=== PATIENT | female | born 1990 | race Caucasian/White ===

== ENCOUNTER 2021-06-20 12:48 | Inpatient (IN) | payer OTHER ==
[2021-06-20] MEDS ORDERED: Ondansetron 4 MG/2 ML SDV IVPUSH PRN (15:25)
[2021-06-20] MEDS ORDERED: Nalbuphine HCl 10 MG/ 1ML Amp IVPUSH PRN (15:25)
[2021-06-20] MEDS ORDERED: Sodium Chloride 0.9% 10 ML Syringe FLUSH PRN (15:25)
[2021-06-20] MEDS ORDERED: Misoprostol 25 MCG (1/4 of 100 MCG) Tab VAG ONE (15:29)
[2021-06-20] MEDS ORDERED: Oxytocin/Lactated Ringers 10 UNIT/1,000 ML BAG IV SCH ×2 (15:30)
[2021-06-20] MEDS ORDERED: Calcium Carbonate 500 MG Tab.Chew PO PRN (16:39)
[2021-06-20] MEDS ORDERED: Acetaminophen 325 MG Tab PO ONE (20:31)
[2021-06-20] MEDS: Lactated Ringers 1,000 ML IV SCH (20:51)
[2021-06-20] MEDS: Sodium Chloride 0.9% 10 ML Syringe FLUSH SCH (21:01)
[2021-06-21] MEDS ORDERED: Bupivacaine 0.25% 10 ML SDV ONE
[2021-06-21] MEDS: Lactated Ringers 1,000 ML IV SCH ×3 (00:50→08:56)
[2021-06-21] MEDS ORDERED: fentaNYL 100 MCG/2 ML SDV EPIDUR PRN (01:00)
[2021-06-21] MEDS ORDERED: ePHEDrine 50 MG/ML SDV IVPUSH PRN (01:00)
[2021-06-21] MEDS ORDERED: diphenhydrAMINE 50 MG/ML SDV IVPUSH PRN (01:00)
[2021-06-21] MEDS: Bupivacaine/fentaNYL/NS 100 ML Bag EPIDUR PRN ×2 (01:08→09:36)
[2021-06-21] MEDS ORDERED: Benzocaine/Menthol 20%-0.5% Spray 78 GM Cannister TOP PRN (13:43)
[2021-06-21] MEDS ORDERED: Docusate Sodium 100 MG Cap PO PRN (13:43)
[2021-06-21] MEDS ORDERED: Acetaminophen 325 MG Tab PO PRN (13:43)
[2021-06-21] MEDS ORDERED: Witch Hazel Medicated Pads 40/Jar TOP PRN (13:43)
[2021-06-21] MEDS: Sodium Chloride 0.9% 10 ML Syringe FLUSH SCH (19:00)
[2021-06-22] MEDS: Ibuprofen 600 MG Tab PO PRN ×2 (08:05→21:34)
[2021-06-22] MEDS: Prenatal Multivitamin with Calcium/Folic Acid/Iron Tab PO SCH (15:37)
[2021-06-23] MEDS: Prenatal Multivitamin with Calcium/Folic Acid/Iron Tab PO SCH (10:10)
== END 2021-06-23 12:40 | disposition home or self-care (01) | DRG 807 ==
LOC: JD.OB 12:48 → OBSVTOIN 06-21 12:48 → JD.OB 06-21 12:49
PROVIDERS: ADMIT Obstetrics & Gynecology; ATTEND Obstetrics & Gynecology
PROC: 10E0XZZ Delivery of Products of Conception, External Approach (ICD-10-PCS; principal; 2021-06-21)
PROC: 0KQM0ZZ Repair Perineum Muscle, Open Approach (ICD-10-PCS; 2021-06-21)
PROC: 3E0P7VZ Introduction of Hormone into Female Reproductive, Via Natural or Artificial Opening (ICD-10-PCS; 2021-06-21)
PROC: 10907ZC Drainage of Amniotic Fluid, Therapeutic from Products of Conception, Via Natural or Artificial Opening (ICD-10-PCS; 2021-06-21)
PROC: 10H07YZ Insertion of Other Device into Products of Conception, Via Natural or Artificial Opening (ICD-10-PCS; 2021-06-21)
PROC: 3E0R3BZ Introduction of Anesthetic Agent into Spinal Canal, Percutaneous Approach (ICD-10-PCS; 2021-06-21)
DX: O13.4 Gestational [pregnancy-induced] hypertension without significant proteinuria, complicating childbirth (principal); Z37.0 Single live birth; O48.0 Post-term pregnancy; Z3A.40 40 weeks gestation of pregnancy; O70.1 Second degree perineal laceration during delivery; Z87.891 Personal history of nicotine dependence; Z79.899 Other long term (current) drug therapy
CPT/HCPCS: 36415; 51702; 59025; 59409; 82565; 82570; 83615; 84156; 84450; 84460; 84520; 84550; 85025; 86592; A9270-GY; J2590; J3010; J3490; J7120

== ENCOUNTER 2024-07-09 21:18 | Emergency (ER) | payer OTHER | END 2024-07-09 23:30 | disposition home or self-care (01) | LOC: JD.ED 21:18 | DX: S53.441A Ulnar collateral ligament sprain of right elbow, initial encounter (principal); W19.XXXA Unspecified fall, initial encounter | CPT/HCPCS: 73140-26-F5; 73140-F5; 99283 ==